=== PATIENT | female | born 1960 | race Caucasian/White ===

== ENCOUNTER 2017-08-06 17:35 | Emergency (ER) | payer BC ==
[2017-08-06 18:19] VITALS: BP 136/88
--- NOTE | 2017-08-06 18:38 | UC ---
Hand/Wrist HPI - HPI Summary HPI Summary: Pt reports that she was carrying 3 heavy grocery bags today and they twisted, pinching her right 4th dip joint, causing sudden onset of swelling, mild discomfort, and weakness at dip joint. pt is able to flex dip but not fully extend joint. - History Of Current Complaint Chief Complaint: UCGeneralIllness Stated Complaint: RIGHT HAND INJURY Time Seen by Provider: 08/06/17 18:15 Hx Obtained From: Patient Hx Last Menstrual Period: 11/2011 ?: No Mechanism Of Injury: twisting and pulling by heavy grocery bags. Onset/Duration: Gradual Onset, Lasting Hours, Still Present Severity Initially: Mild Severity Currently: Mild Character Of Pain: Dull, Aching, Throbbing Aggravating Factor(s): Movement, Extension - unable to extend Alleviating Factor(s): Rest Associated Signs And Symptoms: Positive: Swelling, Weakness Related History: Dominant Hand Right - Risk Factors Compartment Syndrome Risk Factors: Pain - Allergies/Home Medications Allergies/Adverse Reactions: Allergies Allergy/AdvReac Type Severity Reaction Status Date / Time No Known Allergies Allergy Verified 08/06/17 18:14 PMH/Surg Hx/FS Hx/Imm Hx Previously Healthy: Yes - Surgical History Surgical History: Yes Surgery Procedure, Year, and Place: hysterectomy - Family History Known Family History: Positive: Cardiac Disease - Social History Occupation: Employed Full-time Lives: With Family Alcohol Use: Occasionally Alcohol Amount: ~3 Substance Use Type: None Smoking Status (MU): Never Smoked Tobacco Have You Smoked in the Last Year: No - Immunization History Most Recent Influenza Vaccination: no Vaccination Up to Date: No Review of Systems Constitutional: Negative Skin: Bruising - distal right 4th dip joint Eyes: Negative ENT: Negative Respiratory: Negative Cardiovascular: Negative Gastrointestinal: Negative Genitourinary: Negative Motor: Decreased ROM - right dip joint Neurovascular: Negative Musculoskeletal: Decreased ROM - right 4th finger dip joint, unable to extend is able to flex, Edema - right 4t5h finger, Neurological: Weakness - right 4th finger dip joint Psychological: Negative Is Patient Immunocompromised?: No All Other Systems Reviewed And Are Negative: Yes Physical Exam Triage Information Reviewed: Yes Appearance: Well-Appearing Vital Signs: Initial Vital Signs Temp 97.4 F 08/06/17 18:15 Pulse 70 08/06/17 18:15 Resp 16 08/06/17 18:15 BP 136/88 08/06/17 18:15 Pulse Ox 97 08/06/17 18:15 Vital Signs Reviewed: Yes Eye Exam: Normal ENT Exam: Normal Respiratory Exam: Other Respiratory: Positive: No respiratory distress Musculoskeletal: Positive: Strength Limited @ - right 4th dip joint, ROM Limited @ - right dip joint, Edema @ - right 4th finger Neurological Exam: Normal Psychological Exam: Normal Skin Exam: Other - bruising, right 4th finger Hand/Wrist Course/Dx - Differential Dx/Diagnosis Differential Diagnosis/HQI/PQRI: Contusion, Fracture, Strain, Tenosynovitis Provider Diagnoses: right 4th finger strain. joint swelling. tendon rupture Discharge - Discharge Plan Condition: Stable Disposition: HOME Patient Education Materials: Finger Sprain (ED), Tendon Rupture (ED) Referrals: Louis Simental MD [Medical Doctor] - As Soon As Possible Dayana Sweet [Physician Admeasurer] - If Needed
--- NOTE | 2017-08-06 19:35 | RAD ---
INDICATION: Injury to the right ring finger. TECHNIQUE: 3 views of the right ring finger were obtained. FINDINGS: The bones are normal alignment. Joint spaces appear maintained. No fracture is seen. IMPRESSION: NO EVIDENCE FOR FRACTURE, IF THE PATIENT'S SYMPTOMS PERSIST RECOMMEND FOLLOW-UP IMAGING.
== END 2017-08-06 19:31 | disposition home or self-care (01) ==
LOC: UCCORT 17:35
DX: S66.514A Strain of intrinsic muscle, fascia and tendon of right ring finger at wrist and hand level, initial encounter (principal); X50.9XXA Other and unspecified overexertion or strenuous movements or postures, initial encounter; Y92.9 Unspecified place or not applicable
CPT/HCPCS: 73140; 99201; G0463

== ENCOUNTER 2017-09-04 09:14 | Emergency (ER) | payer BC ==
[2017-09-04 10:18] VITALS: BP 126/72
--- NOTE | 2017-09-04 10:28 | UC ---
Skin Complaint HPI - HPI Summary HPI Summary: pt c/o sudden onset of tenderness, redness and swelling to left ear at site of piercing at crux of helix. - History of Current Complaint Chief Complaint: UCSkin Time Seen by Provider: 09/04/17 10:17 Stated Complaint: SKIN COMPLAINT Hx Obtained From: Patient Hx Last Menstrual Period: 11/2011 ?: No Onset/Duration: Sudden Onset, Lasting Hours, Still Present Skin Exposure Onset/Duration: Hours Ago Timing: Constant Onset Severity: Mild Current Severity: Mild Location: Discrete, Ear (Left) Character: Swelling, Pain, Redness Aggravating Factor(s): Touch Alleviating Factor(s): Unknown Associated Signs & Symptoms: Positive: Tenderness - Allergy/Home Medications Allergies/Adverse Reactions: Allergies Allergy/AdvReac Type Severity Reaction Status Date / Time No Known Allergies Allergy Verified 08/06/17 18:14 Review of Systems Constitutional: Negative Skin: Other - erythema, swelling, tenderness Eyes: Negative ENT: Other - swelling and tenderness at site of piercing, yanet of helix Respiratory: Negative Cardiovascular: Negative Gastrointestinal: Negative Genitourinary: Negative Motor: Negative Neurovascular: Negative Musculoskeletal: Negative Neurological: Negative Psychological: Negative Is Patient Immunocompromised?: No All Other Systems Reviewed And Are Negative: Yes PMH/Surg Hx/FS Hx/Imm Hx Previously Healthy: Yes - Surgical History Surgical History: Yes Surgery Procedure, Year, and Place: hysterectomy - Family History Known Family History: Positive: Cardiac Disease - Social History Alcohol Use: Occasionally Alcohol Amount: ~3 Substance Use Type: None Smoking Status (MU): Never Smoked Tobacco Have You Smoked in the Last Year: No - Immunization History Most Recent Influenza Vaccination: no Vaccination Up to Date: No Physical Exam Triage Information Reviewed: Yes Vital Signs: Initial Vital Signs Temp 98.3 F 09/04/17 10:13 Pulse 74 09/04/17 10:13 Resp 18 09/04/17 10:13 BP 126/72 09/04/17 10:13 Pulse Ox 100 09/04/17 10:13 Vital Signs Reviewed: Yes Eye Exam: Normal ENT Exam: Other ENT: Positive: Other - yanet of helix left ear, is mild swelling, mild erythema, and tenderness. piercing intac.t I attempted to remove peircing but pt declined and stated she woud have the person who pierced it take it out. Dental Exam: Normal Neck exam: Normal Respiratory Exam: Normal Cardiovascular Exam: Normal Musculoskeletal Exam: Normal Neurological Exam: Normal Psychological Exam: Normal Skin Exam: Other - erythema, swelling, tenderness left yanet of helix at site of piercing. Course/Dx - Differential Diagnoses - Skin Complaint Differential Diagnoses: Abscess - left ear cellulitis, Cellulitis, MRSA - Diagnoses Provider Diagnoses: cellulitis left ear. skin infection Discharge - Discharge Plan Condition: Stable Disposition: HOME Prescriptions: Cephalexin CAP* [Keflex 500 CAP*] 500 mg PO Q12H #10 cap Patient Education Materials: Cellulitis (ED) Referrals: Monica Zayas MD [Primary Care Provider] - If Needed
== END 2017-09-04 10:36 | disposition home or self-care (01) ==
LOC: UCCORT 09:14
DX: H60.12 Cellulitis of left external ear (principal); Z90.710 Acquired absence of both cervix and uterus
CPT/HCPCS: 99212; G0463

== ENCOUNTER 2018-01-11 10:36 | Emergency (ER) | payer BC ==
--- OUTSIDE RECORDS SUMMARY | 2018-01-11 11:06 | XMS REPORT ---
:1960 External Reference #:[id number] Author Organization [facility] Address [address] [address] Phone [phone] Care Team Providers Name Role Phone Monica Zayas MD Care Team Information Action Finisher Unavailable Payers Type Date Identification Numbers Payment Provider Subscriber Commercial Policy Number: [id number] [facility] Commercial Sharon Worley PayID: [id number] [address] [address] [place] [address] Problems Date Description Provider Status Onset: 05/07/2012 Migraine without aura, not refractory Dayana Galindo PA Active Family History Date Family Member(s) Problem(s) Comments Father due to () age 57 Father CVA age 47- related to carotidendarectomy Father Alcoholism : (age Father due to Stroke post op carotid 57 Years) endarterectomy age 51, at 57 Father Hypertension Father CAD Mother Tobacco Abuse Emphysema Mother due to COPD () - age 79 Children 1 First Son No Current Problems Siblings 3 First Brother Hypertension : (1991) First Sister due to age 39 Aneurysm, Cerebral Second Sister Arthritis Paternal Uncles Cancer, Throat Social History Type Date Description Comments Education Highest Level Completed Master's Degree Marital Status 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[place], 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 , 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58 ETOH Use Occasionally consumes alcohol Smoking Patient has never smoked Recreational Drug Use Denies Drug Use Daily Caffeine Consumes on average 2 sodas per day Exercise Type/Frequency Exercises regularly walk, run; 11/22/16 counselled 150min per wek 41388 steps per day [facility] Allergies, Adverse Reactions, Alerts Date Description Reaction Status Severity Comments 12/03/2014 NKDA active Medications Medication Date Status Form Strength Qnty SIG Indications Ordering Provider Prednisone 01/02 Active Tablets 20mg 10tab 3 by mouth M54.5 Cunningha /2018 s for 3 days, Monica bower, then 1 by mouth daily for 4 days Naproxen 01/02 Active Tablets 500mg 60tab 1 by mouth M54.5 s twice a day Monica bower, with food, start when pred is done Sumatriptan 10/25 Active Solution 4mg/0.5ML 3ml inject one Auto-Inject dose at Monica bower, onset of MD migraines and then repeat after 2 hours if persistent. Sumatriptan 10/04 Active Tablets 100mg 9tabs take 1 tablet by Monica bower, mouth at the onset of headache ,may repeat one time after 2 hours as needed Valacyclovir HCL 08/02 Active Tablets 1gm 4tabs 2 by mouth Pramod every 12 Moinca bower, hours at onset of cold sore Vitamin D-3 12/17 Hx Capsules 1000Unit 30cap 1 by mouth E55.9 s every day Monica bower, - with dinner 07/07 with meat fat oil Amoxicillin/Clav 03/13 Hx Tablets 875-125mg 20tab 1 by mouth J01.90 Epstein, ulanate /2015 s twice a day Abelardo Potassium - DO 03/23 Amitriptyline 11/08 Hx Tablets 10mg take 3 Tabs G43.809 Epstein, HCL by mouth at Abelardo, - bedtime DO 03/13 Fluticasone 11/08 Hx Suspension 50mcg/Act 16uni 1 spray R51 Lucian, Propionate ts each Abelardo, - nostril DO 11/22 twice a day /2016 Amitriptyline 10/04 Hx Tablets 50mg 30tab 1 po qhs G43.809 Epstein, HCL s Abelardo, - DO 11/08 Amitriptyline 08/04 Hx Tablets 10mg 90tab 1 by mouth G43.809 Epstein, HCL /2014 s every night Abelardo, - at bedtime, DO 10/04 increase by 1 every 3-4 days for persistent allison Fluticasone 07/04 Hx Suspension 50mcg/Act 16uni 1 spray J01.80 Epstein, Propionate ts each Abelardo, - nostril DO 09/04 twice a day /2014 Topiramate 07/04 Hx Tablets 25mg 30tab 1 by mouth G43.809 Epstein, s every day Abelardo, - DO 08/04 Amoxicillin/Clav 12/03 Hx Tablets 875-125mg 20tab 1 by mouth 465.9 Digiovann ulanate s every 12 a, Potassium - hours for [place], 12/13 10 days [employer] Cyclobenzaprine 09/19 Hx Tablets 5mg 30tab 1-2 po qhs 724.2 Epstein, HCL s Abelardo, - DO 09/26 Famotidine 05/20 Hx Tablets 20mg 60tab 1 by mouth Epstein, s twice a day Abelardo, - DO 07/04 Naproxen 03/15 Hx Tablets 500mg 60tab 1 by mouth Epstein, /2013 s twice a day Abelardo, - with food x DO 07/04 2 weeks, then as needed Sumatriptan 02/20 Hx Solution 4mg/0.5ML 4unit inject 1 Epstein, Succinate Refill /2010 Cartridge s dose Abelardo, - subcutaneou DO 11/22 sly for migraines may repeat in 1 hour if migraines persists Premarin 00/00 Hx Solution 25mg 30tab 1 by mouth Unknown /0000 Rec s every day - 08/04 Pantoprazole 00/[address] 40mg 90tab 1 by mouth Epstein, Sodium /0000 s every day Abelardo, - DO 11/22 Amitriptyline 00/00 Hx Tablets 10mg take Two G43.809 Unknown HCL /0000 tablet by - mouth at 06/19 bedtime /2015 Propranolol HCL 00/00 Hx Caps ER 80mg 1 by mouth Unknown ER /0000 24HR every day - 06/19 Immunizations CPT Code Status Date Vaccine Reaction Lot # [id number] Given 11/22/2016 Tdap (Adacel) Ages 7 And Im inj completed, Pt [id number] Above Only tolerated well 09933 Refused 11/22/2016 Influenza Virus Vaccine,Quadrivalent,Split,Preserv Free 3 Yrs+ Vital Signs Date Vital Result Comment 01/02/2018 Weight 178.00 lb Heart Rate 72 /min BP Systolic 120 mmHg BP Diastolic 80 mmHg Respiratory Rate 18 /min Height 67.75 inches 5'7.75" BMI (Body Mass Index) 27.3 kg/m2 07/08/2017 Weight 169.00 lb Heart Rate 72 /min BP Systolic 118 mmHg BP Diastolic 82 mmHg Respiratory Rate 16 /min Height 67.75 inches 5'7.75" 11/22/16 BMI (Body Mass Index) 25.9 kg/m2 12/17/2016 Weight 172.00 lb Heart Rate 76 /min BP Systolic 126 mmHg BP Diastolic 84 mmHg Respiratory Rate 14 /min Height 67.75 inches 5'7.75" 11/22/16 BMI (Body Mass Index) 26.3 kg/m2 11/22/2016 Weight 174.00 lb Heart Rate 76 /min BP Systolic 128 mmHg BP Diastolic 76 mmHg Respiratory Rate 16 /min Height 67.75 inches 5'7.75" 11/22/16 BMI (Body Mass Index) 26.6 kg/m2 06/19/2016 Body Temperature 98.3 F Weight 172.00 lb Heart Rate 72 /min BP Systolic 138 mmHg BP Diastolic 70 mmHg Respiratory Rate 18 /min Height 68 inches 5'8" O2 % BldC Oximetry 97 % BMI (Body Mass Index) 26.1 kg/m2 03/13/2016 Body Temperature 98.0 F Weight 167.00 lb Heart Rate 94 /min BP Systolic 152 mmHg BP Diastolic 80 mmHg Respiratory Rate 18 /min Height 68 inches 5'8" O2 % BldC Oximetry 98 % BMI (Body Mass Index) 25.4 kg/m2 11/08/2015 Weight 165.00 lb Heart Rate 72 /min BP Systolic 132 mmHg BP Diastolic 80 mmHg Respiratory Rate 18 /min Height 68 inches 5'8" BMI (Body Mass Index) 25.1 kg/m2 09/04/2015 Weight 162.00 lb Heart Rate 86 /min BP Systolic 134 mmHg BP Diastolic 90 mmHg Respiratory Rate 17 /min Height 68 inches 5'8" BMI (Body Mass Index) 24.6 kg/m2 08/04/2015 Weight 160.00 lb Heart Rate 68 /min BP Systolic 120 mmHg BP Diastolic 70 mmHg Respiratory Rate 18 /min Height 68 inches 5'8" BMI (Body Mass Index) 24.3 kg/m2 07/04/2015 Body Temperature 98.2 F Weight 161.00 lb Heart Rate 68 /min BP Systolic 134 mmHg BP Diastolic 70 mmHg Respiratory Rate 18 /min Height 68 inches 5'8" BMI (Body Mass Index) 24.5 kg/m2 12/03/2014 Body Temperature 97.5 F Weight 165.00 lb Heart Rate 68 /min BP Systolic 112 mmHg BP Diastolic 70 mmHg Respiratory Rate 18 /min Height 67.75 inches 5'7.75" O2 Saturation Level with Exercise 97 % BMI (Body Mass Index) 25.3 kg/m2 09/19/2014 Weight 178.00 lb Heart Rate 74 /min BP Systolic 140 mmHg BP Diastolic 80 mmHg Respiratory Rate 18 /min Height 67.75 inches 5'7.75" BMI (Body Mass Index) 27.3 kg/m2 06/02/2014 Body Temperature 98.3 F Weight 174.00 lb Heart Rate 74 /min BP Systolic 110 mmHg BP Diastolic 70 mmHg Respiratory Rate 18 /min Height 67.75 inches 5'7.75" 05/20/2014 Body Temperature 98.3 F Weight 172.00 lb Heart Rate 68 /min BP Systolic 130 mmHg BP Diastolic 72 mmHg Respiratory Rate 18 /min Height 67.25 inches 5'7.25" 04/14/2014 Weight 174.00 lb Heart Rate 64 /min BP Systolic 100 mmHg BP Diastolic 64 mmHg Respiratory Rate 18 /min Height 67.25 inches 5'7.25" 03/15/2014 Weight 174.00 lb Heart Rate 72 /min BP Systolic 124 mmHg BP Diastolic 84 mmHg Respiratory Rate 18 /min Height 67.25 inches 5'7.25" 12/10/2013 Body Temperature 97.9 F Weight 175.00 lb Heart Rate 80 /min BP Systolic 124 mmHg BP Diastolic 88 mmHg Respiratory Rate 16 /min 12/03/2013 Weight 178.00 lb Heart Rate 72 /min BP Systolic 128 mmHg BP Diastolic 80 mmHg Respiratory Rate 18 /min 11/19/2013 Weight 175.00 lb Heart Rate 70 /min BP Systolic 132 mmHg BP Diastolic 74 mmHg Respiratory Rate 18 /min 11/16/2013 Body Temperature 98.2 F Weight 178.00 lb Heart Rate 84 /min BP Systolic 136 mmHg BP Diastolic 86 mmHg Respiratory Rate 16 /min 04/07/2013 Weight 173.00 lb Heart Rate 88 /min BP Systolic 114 mmHg BP Diastolic 72 mmHg Respiratory Rate 16 /min Height 67.25 inches 5'7.25" 10/08/2012 Weight 160.00 lb Heart Rate 60 /min BP Systolic 124 mmHg BP Diastolic 72 mmHg Respiratory Rate 18 /min 07/08/2012 BP Systolic 120 mmHg BP Diastolic 82 mmHg 07/08/2012 Weight 173.00 lb Heart Rate 74 /min BP Systolic 124 mmHg BP Diastolic 80 mmHg Respiratory Rate 18 /min 05/07/2012 BP Systolic 142 mmHg BP Diastolic 86 mmHg 05/07/2012 Body Temperature 98.4 F Weight 169.00 lb Heart Rate 74 /min BP Systolic 164 mmHg BP Diastolic 90 mmHg Respiratory Rate 18 /min Height 67.75 inches 5'7.75" 06/10/2011 Body Temperature 98.8 F Weight 172.00 lb Heart Rate 76 /min BP Systolic 94 mmHg BP Diastolic 78 mmHg Respiratory Rate 18 /min Height 67.75 inches 5'7.75" 02/20/2011 Weight 172.00 lb Heart Rate 92 /min BP Systolic 104 mmHg l arm BP Diastolic 78 mmHg l arm Respiratory Rate 16 /min Height 67.75 inches 5'7.75" 10/03/2010 Body Temperature 98.2 F Weight 174.00 lb Heart Rate 80 /min BP Systolic 132 mmHg LEFT BP Diastolic 88 mmHg LEFT Respiratory Rate 16 /min 05/30/2010 Weight 170.00 lb Heart Rate 72 /min BP Systolic 110 mmHg l arm BP Diastolic 76 mmHg l arm Respiratory Rate 18 /min 12/14/2009 Body Temperature 98.4 F Weight 166.00 lb Heart Rate 70 /min BP Systolic 112 mmHg BP Diastolic 80 mmHg Respiratory Rate 18 /min 11/22/2009 Body Temperature 98.3 F Weight 169.00 lb Heart Rate 68 /min BP Systolic 112 mmHg LEFT BP Diastolic 68 mmHg LEFT Respiratory Rate 16 /min 11/02/2009 Body Temperature 97.0 F Weight 169.00 lb Heart Rate 62 /min BP Systolic 116 mmHg RIGHT BP Diastolic 72 mmHg RIGHT Respiratory Rate 16 /min O2 % BldC Oximetry 98 % rm air 08/17/2009 Weight 174.00 lb Heart Rate 72 /min BP Systolic 120 mmHg BP Diastolic 80 mmHg Respiratory Rate 13 /min 08/09/2009 Body Temperature 97.9 F Weight 174.00 lb Heart Rate 78 /min BP Systolic 122 mmHg BP Diastolic 84 mmHg 07/21/2009 Body Temperature 98.0 F Weight 174.00 lb Heart Rate 70 /min BP Systolic 126 mmHg BP Diastolic 84 mmHg Respiratory Rate 16 /min 06/29/2009 Weight 176.00 lb Heart Rate 77 /min BP Systolic 140 mmHg BP Diastolic 90 mmHg Respiratory Rate 14 /min 11/10/2008 Weight 178.00 lb Heart Rate 76 /min BP Systolic 118 mmHg BP Diastolic 80 mmHg Respiratory Rate 14 /min 06/23/2008 Weight 178.00 lb Heart Rate 72 /min BP Systolic 118 mmHg BP Diastolic 82 mmHg Respiratory Rate 18 /min Height 68 inches 5'8" 04/25/2008 Heart Rate 66 /min BP Systolic 112 mmHg BP Diastolic 74 mmHg Respiratory Rate 14 /min Height 68 inches 5'8" 02/23/2008 Weight 166.00 lb Heart Rate 66 /min BP Systolic 110 mmHg BP Diastolic 70 mmHg Respiratory Rate 16 /min Height 68 inches 5'8" 01/25/2008 Weight 171.00 lb Heart Rate 68 /min BP Systolic 128 mmHg BP Diastolic 86 mmHg Respiratory Rate 17 /min Height 68 inches 5'8" 08/28/2007 Body Temperature 98.5 F Heart Rate 68 /min BP Systolic 90 mmHg BP Diastolic 76 mmHg Respiratory Rate 19 /min Height 68 inches 5'8" 07/01/2007 Heart Rate 72 /min BP Systolic 130 mmHg BP Diastolic 80 mmHg Respiratory Rate 18 /min Height 68 inches 5'8" 06/10/2007 Body Temperature 98.9 F Weight 163.00 lb Heart Rate 72 /min BP Systolic 106 mmHg BP Diastolic 80 mmHg Respiratory Rate 18 /min Height 68 inches 5'8" 04/08/2007 Weight 160.00 lb Heart Rate 68 /min BP Systolic 110 mmHg BP Diastolic 80 mmHg Height 68 inches 5'8" 01/22/2007 Weight 163.00 lb Heart Rate 68 /min BP Systolic 120 mmHg BP Diastolic 80 mmHg Respiratory Rate 16 /min Height 68 inches 5'8" 01/05/2007 Weight 165.00 lb Heart Rate 69 /min BP Systolic 110 mmHg BP Diastolic 80 mmHg Respiratory Rate 18 /min Height 68 inches 5'8" 12/03/2006 Weight 164.00 lb Heart Rate 72 /min BP Systolic 100 mmHg BP Diastolic 64 mmHg Respiratory Rate 16 /min Height 68 inches 5'8" 11/19/2006 Weight 166.00 lb Heart Rate 75 /min BP Systolic 114 mmHg BP Diastolic 80 mmHg Respiratory Rate 17 /min Height 68 inches 5'8" 08/12/2006 Body Temperature 98.6 F Weight 161.00 lb Heart Rate 69 /min BP Systolic 106 mmHg BP Diastolic 60 mmHg Respiratory Rate 18 /min Height 68 inches 5'8" 06/20/2006 Weight 156.00 lb Heart Rate 94 /min BP Systolic 96 mmHg BP Diastolic 72 mmHg Respiratory Rate 17 /min Height 68 inches 5'8" 11/06/2005 Weight 159.00 lb With Coat And Boots Heart Rate 69 /min BP Systolic 108 mmHg BP Diastolic 74 mmHg Respiratory Rate 15 /min 05/06/2005 Weight 156.00 lb Heart Rate 71 /min BP Systolic 92 mmHg BP Diastolic 68 mmHg Respiratory Rate 18 /min 04/24/2005 Weight 156.00 lb Heart Rate 76 /min BP Systolic 120 mmHg BP Diastolic 90 mmHg Respiratory Rate 18 /min Results Test Date Test Result H/L Range Note Laboratory test finding 07/01/2017 Vit D25oh 24 ng/mL Low 31-100 Lipid 07/01/2017 Cholesterol 279 mg/dL High 50-199 Triglycerides 85 mg/dL 30-200 HDL 86 mg/dL High 35-85 1 Chol/ HDL Ratio 3.2 ratio Low 3.7-5.6 VLDL 17 mg/dL 2-29 LDL (Calc) 176 mg/dL High 20-99 2 Comprehensive Met Panel-[facility]G 07/01/2017 Sodium 141 mmol/L 135-146 3 Potassium 4.4 mmol/L 3.5-5.2 Chloride# 105 mmol/L 97-110 4 Carbon Dioxide 27 mmol/L 24-34 Glucose 100 mg/dL 70-105 Creatinine 0.9 mg/dL 0.5-1.4 Calcium 10.0 mg/dL 8.5-10.2 Total Protein 6.7 g/dL 6.0-8.0 Albumin 4.4 g/dL 3.6-4.9 Globulin 2.3 g/dL 2.0-3.5 A/G Ratio 1.9 Ratio 1.0-2.2 Total Bilirubin 0.6 mg/dL 0.1-1.3 Alkaline Phosphatase 62 U/L 24-140 Alt 14 U/L 3-42 Ast 16 U/L 8-42 Mary Kay Egfr >60 >60 5 Non Mary Kay Egfr >60 >60 6 Anion Gap 9 mmol/L 7-16 7 BUN 16 mg/dL 6-26 Lipid 12/06/2016 Cholesterol 267 mg/dL High 50-199 8 Triglycerides 78 mg/dL 30-200 8 HDL 80 mg/dL 35-85 8, 9 Chol/ HDL Ratio 3.3 ratio Low 3.7-5.6 8 VLDL 16 mg/dL 2-29 8 LDL (Calc) 172 mg/dL High 20-99 8, 10 Comprehensive Metabolic (CMP) 12/06/2016 Sodium 142 mmol/L 135-146 8, 11 Potassium 4.5 mmol/L 3.5-5.2 8 Chloride# 105 mmol/L 97-110 8, 12 Carbon Dioxide 30 mmol/L 24-34 8 Glucose 93 mg/dL 70-105 8 BUN 19 mg/dL 6-26 8 Creatinine 0.9 mg/dL 0.5-1.4 8 Calcium 9.9 mg/dL 8.5-10.2 8 Total Protein 6.8 g/dL 6.0-8.0 8 Albumin 4.6 g/dL 3.6-4.9 8 Globulin 2.2 g/dL 2.0-3.5 8 A/G Ratio 2.1 Ratio 1.0-2.2 8 Total Bilirubin 0.7 mg/dL 0.1-1.3 8 Alkaline Phosphatase 72 U/L 24-140 8 Alt 13 U/L 3-42 8 Ast 15 U/L 8-42 8 Mary Kay Egfr >60 >60 8, 13 Non Mary Kay Egfr >60 >60 8, 14 Anion Gap 12 mmol/L 7-16 8, 15 Laboratory test finding 12/06/2016 TSH 1.40 uIU/mL 0.35-4.94 8 Vit D,25 Hydroxy 28 ng/mL Low 31-100 8 Hepatitis C Virus Antibody NONREACTIVE Nonreactive 8 Laboratory test 11/22/2016 Pap Smear Thin ok 16 finding Prep Laboratory test 11/22/2016 HPV Laboratory Allia 17 finding <SEE NOTE> Basic Metabolic Panel 09/17/2014 Glucose 116 mg/dL High 74-106 BUN 16 mg/dL 7-18 Creatinine 1.1 mg/dL 0.6-1.3 Glom Filtration Rate, Estimate 55 mL/min >60 If >60 mL/min >60 18 BUN/Creat 14.5 ratio Sodium 142 mmol/L 136-145 Potassium 3.8 mmol/L 3.5-5.1 Chloride 107 mmol/L 98-107 Carbon Dioxide 24 mmol/L 21-32 Anion Gap 15 mEq/L 8-16 Calcium 8.8 mg/dL 8.5-10.1 Laboratory test finding 09/17/2014 CK 110 U/L 26-192 Troponin-I < 0.02 ng/mL 19 CBC W/Automated Diff 09/17/2014 White Blood Count 5.3 K/uL 3.1-10.7 Red Blood Count 4.14 M/uL 3.90-5.40 Hemoglobin 13.7 gm/dL 11.6-15.8 Hematocrit 39.4 % 36.0-46.1 Mean Cell Volume 95.2 fl 80.9-99.0 Mean Corpuscular HGB 33.1 pg High 25.9-32.7 Mean Corpuscular HGB Conc 34.8 g/dL High 30.8-34.3 Platelet Count 203 K/uL 155-360 Red Cell Distri Width SD 43.1 fl 3-47 Red Cell Distri Width %CV 12.6 % 11.7-14.4 Mean Platelet Volume 10.0 fL 8.9-12.4 Neut% 50.7 % 40.4-72.8 Lymph % 37.5 % 17.0-46.1 Bryan % 7.6 % 4.3-13.2 Eo% 3.2 % 0.0-6.6 Bas% 1.0 % 0.0-1.1 Neut# 2.67 K/uL 1.0-7.0 Lymph # 1.97 K/uL 0.8-3.4 Bryan # 0.40 K/uL 0.3-0.9 Eos # 0.17 K/uL 0.0-0.5 Baso # 0.05 K/uL 0.0-0.1 Laboratory test finding 04/14/2014 % Baso. 1.7 % 0.0-2.0 % Eos. 2.7 % 0.0-4.0 % Lymph 35 % 20-44 % Bryan 9.6 % 2.0-10.0 % Josie 51 % 50-70 Absolute Baso. 0.1 K/ul 0.0-0.3 Absolute Eos. 0.1 K/ul 0.0-0.5 Absolute Lymph. 1.7 K/ul 0.8-4.8 Absolute Bryan. 0.5 K/ul 0.1-1.0 Absolute Josie. 2.58 K/ul 2.05-7.63 BUN 16.0 mg/dL 7.0-18.0 BUN/Creat Ratio 17.8 ratio 12.0-20.0 Calcium 9.7 mg/dL 8.7-10.5 Chloride 106.0 mmol/L 98.0-107.0 Co2 26.0 mmol/L 22.0-30.0 Creatinine-Serum 0.9 mg/dL 0.7-1.2 Glucose 99.0 mg/dL 75.0-110.0 HCT 41.6 % 37.0-51.0 HGB 14.6 Gm/dl 12.0-16.0 MCH 32.7 pg High 26.0-32.0 MCHC 35.0 g/dL 31.0-36.0 MCV 93.4 Fl 80.0-97.0 MPV 6.4 fL 6.0-10.0 PLT 214 K/ul 140-440 Potasium 4.4 mmol/L 3.6-5.0 RBC 4.5 M/ul 4.2-6.3 RDW 11.2 % Low 11.5-14.5 Sodium 142.0 mmil/L 137.0-145.0 Vitamin D 29.7 ng/mL Low 30.0-100.0 WBC 5.0 K/ul 4.1-10.9 eGFR 69.9 Lipid Panel 04/14/2014 Chol/HDL Ratio 3.1 ratio Cholesterol 261.0 mg/dL High 50.0-199.0 HDL 84.0 mg/dL 29.0-86.0 LDL, Calculated 150.4 mg/dL High 20.0-129.0 Triglycerides 133.0 mg/dL 30.0-249.0 vLDL 26.6 ng/dL Laboratory test finding 05/07/2012 Anion Gap 17 mmol/L 10-20 BUN 15 mg/dL 7-18 BUN/CR Ratio 17.7 Ratio 12-20 Calcium 9.8 mg/dL 8.7-10.5 Carbon Dioxide 26 mmol/L 22-30 Chloride 100 mmol/L 98-107 Creatinine, Serum 0.8 mg/dL 0.7-1.2 Glucose 93 mg/dL 65-105 Potassium 5.1 mmol/L High 3.6-5.0 Sodium 137 mmol/L 137-145 Lipid Panel 05/07/2012 Chol/HDL Ratio 2.7 20 Cholesterol 254 mg/dL High 50-199 HDL Cholesterol 94 mg/dL High 29-86 LDL 144 mg/dL High 20-129 Triglycerides 81 mg/dL 30-249 VLDL Cholesterol 16 mg/dL Laboratory test finding 11/20/2011 Hematocrit 34.8 % Low 36.0-46.1 Hemoglobin 11.8 gm/dL 11.6-15.8 Mean Cell Volume 97.5 fl 80.9-99.0 Mean Corpuscular HGB 33.1 pg High 25.9-32.7 Mean Corpuscular HGB Conc 33.9 g/dL 30.8-34.3 Mean Platelet Volume 10.6 fL 8.9-12.4 Platelet Count 157 K/uL 155-360 Red Blood Count 3.57 M/uL Low 3.90-5.40 Red Cell Distri Width %CV 12.4 % 11.7-14.4 White Blood Count 5.0 K/uL 3.1-10.7 Laboratory test finding 11/19/2011 Hematocrit 35.1 % Low 36.0-46.1 Hemoglobin 11.8 gm/dL 11.6-15.8 Mean Cell Volume 98.0 fl 80.9-99.0 Mean Corpuscular HGB 33.0 pg High 25.9-32.7 Mean Corpuscular HGB Conc 33.6 g/dL 30.8-34.3 Mean Platelet Volume 10.6 fL 8.9-12.4 Platelet Count 148 K/uL Low 155-360 Red Blood Count 3.58 M/uL Low 3.90-5.40 Red Cell Distri Width %CV 12.7 % 11.7-14.4 White Blood Count 5.1 K/uL 3.1-10.7 Laboratory test finding 11/18/2011 Uterus W/Wo FT/Ovary-Fibroid See Note 21 Laboratory test finding 12/14/2009 Lidia Species See Note 22 Gardnerella Vaginalis See Note 23 Trichomonas Vaginalis See Note 24 Laboratory test finding 11/22/2009 Culture Urine See Note 25 Laboratory test finding 08/17/2009 Absolute Basophils 0.061 K/ul 0.0-0.3 Absolute Eosinophils 0.070 K/ul 0.0-0.5 Absolute Lymphocytes 1.20 K/ul 0.8-4.8 Absolute Monocytes 0.309 K/ul 0.1-1.0 Absolute Neutrophils 2.70 K/ul 2.05-7.63 Anion Gap 14 mmol/L 10-20 BUN 16 mg/dL 7-18 BUN/CR Ratio 17.5 Ratio 12-20 Basophil 1.4 % 0-2 Calcium 9.9 mg/dL 8.7-10.5 Carbon Dioxide 27 mmol/L 22-30 Chloride 104 mmol/L 98-107 Creatinine, Serum 0.9 mg/dL 0.7-1.2 Eosinophil 1.6 % 0-4 FSH 5.3 mIU/mL 26 Glucose 90 mg/dL 65-105 Hematocrit 44.4 % 37.0-51.0 Hemoglobin 14.8 GM/dl 12.0-16.0 Luteinizing Hormone 3.1 mIU/mL 27 Lymphocytes 27.7 % 20-44 MCH 33.0 pg High 26.0-32.0 MCHC 33.2 g/dL 31.0-36.0 MCV 99 FL High 80-97 Monocytes 7.1 % 2-10.0 Neutrophils 62.2 % 50-70 Platelet Count 237 K/ul 140-440 Potassium 5.2 mmol/L High 3.6-5.0 RBC 4.47 M/ul 4.2-6.3 RDW 11.8 % 11.5-14.5 Sodium 140 mmol/L 137-145 TSH 0.896 uIU/ml 0.50-6.00 WBC 4.3 K/ul 4.1-10.9 Laboratory test finding 06/29/2009 Cytology Pap See Note 28 Laboratory test finding 06/23/2008 Cytology Pap See Note 29 Laboratory test finding 01/22/2008 CK 33 U/L 26-190 30 Troponin-I 0.0 ng/mL 0.0-0.6 30, 31 Fio2 21 21-100 30 Heart Rate 65 BPM 30 Oximetry 95 % 93-98 30 Patient Position Lying Flat In Be <See Note> 30, 32 Patient Status Resting 30 Respiratory Rate 20 30 Act Partial Thrombo Time 25.1 s 22.0-36.0 30 CK 24 U/L Low 26-190 30 Hematocrit 38.2 % 36.0-46.1 30 Hemoglobin 13.0 gm/dL 11.6-15.8 30 Magnesium 1.9 mg/dL 1.7-2.3 30 Mean Cell Volume 95.5 fl 80.9-99.0 30 Mean Corpuscular HGB 32.5 pg 25.9-32.7 30 Mean Corpuscular HGB Conc 34.0 g/dL 30.8-34.3 30 Mean Platelet Volume 10.1 fL 8.9-12.4 30 Platelet Count 178 K/uL 155-360 30 Red Blood Count 4.00 M/uL 3.90-5.40 30 Red Cell Distri Width %CV 12.6 % 11.7-14.4 30 Troponin-I 0.0 ng/mL 0.0-0.6 30, 33 White Blood Count 6.1 K/uL 3.1-10.7 30 LDL Cholesterol Profile 01/22/2008 Cholesterol 192 mg/dL 120-200 30 HDL Cholesterol 65 mg/dL 32-96 30 LDL-Cholesterol 116 mg/dL 62-185 30 Triglycerides 55 mg/dL 0-210 30 Liver Function Tests 01/22/2008 Albumin 3.5 g/dL 3.5-5.0 30 Alkaline Phosphatase 51 U/L 50-136 30 Bilirubin,Direct 0.1 mg/dL 0.1-0.4 30 Bilirubin,Indirect 0.2 mg/dL 0.0-0.9 30 Bilirubin,Total 0.3 mg/dL 0.2-1.2 30 SGPT/Alt 29 U/L Low 30-65 30 Sgot/Ast 7 U/L Low 16-40 30 Total Protein 6.1 g/dL Low 6.3-8.0 30 Protime 01/22/2008 Inr 1.0 0.9-1.1 30, 34 Protime 12.8 s 12.1-14.6 30 Laboratory test finding 01/21/2008 Anion Gap 16 mEq/L 8-16 BUN 14 mg/dL 5-23 BUN/Creat 14.0 Bas% 0.5 % 0.0-1.1 Baso # 0.0 K/uL 0.0-0.1 CK 35 U/L 26-190 Calcium 9.1 mg/dL 8.5-10.1 Carbon Dioxide 20 mEq/L Low 21-32 Chloride 108 mEq/L High 98-107 Creatinine 1.0 mg/dL 0.5-1.4 D-Dimer, Quantitative < 0.22 ug/mL 35 Eo% 1.5 % 0.0-6.6 Eos # 0.1 K/uL 0.0-0.5 Glom Filtration Rate, Estimate >60 mL/min >60 Glucose 103 mg/dL 76-115 HCG Serum, Qualitative Negative Hematocrit 38.7 % 36.0-46.1 Hemoglobin 13.3 gm/dL 11.6-15.8 If >60 mL/min >60 36 Lymph # 1.7 K/uL 0.8-3.4 Lymph % 29.1 % 17.0-46.1 Mean Cell Volume 93.5 fl 80.9-99.0 Mean Corpuscular HGB 32.1 pg 25.9-32.7 Mean Corpuscular HGB Conc 34.4 g/dL High 30.8-34.3 Mean Platelet Volume 10.7 fL 8.9-12.4 Bryan # 0.5 K/uL 0.3-0.9 Bryan % 8.1 % 4.3-13.2 Neut# 3.6 K/uL 1.0-7.0 Neut% 60.8 % 40.4-72.8 Platelet Count 203 K/uL 155-360 Potassium 3.7 mEq/L 3.5-5.1 Red Blood Count 4.14 M/uL 3.90-5.40 Red Cell Distri Width %CV 12.5 % 11.7-14.4 Red Cell Distri Width SD 42 fl 3-47 Sodium 140 mEq/L 136-145 Troponin-I 0.0 ng/mL 0.0-0.6 37 White Blood Count 6.0 K/uL 3.1-10.7 Laboratory test finding 06/20/2006 Lidia Species Negative For Can <See 38 Note> Cytology Pap See Note 39 Gardnerella Vaginalis <see comment> 40 Trichomonas Vaginalis Negative For Tri <See Note> 41 Laboratory test finding 05/06/2005 FSH 5.1 mIU/mL 42 Luteinizing Hormone 7.8 mIU/mL 43 1 Per NCEP ATP III Guidelines: Results lower than 40 mg/dL are suggestive of increased risk for coronary artery disease. Results > or=to 60 mg/dL are considered a negative risk factor. 2 Per NCEP ATP III Guidelines: Normal Population <130 Patients with medical conditions: CHD/DM Optimal: <100 Borderline high: 130-159 High: 160-189 Very high: >189 3 Updated reference range on new analyzer 4 Updated reference range on new analyzer 5 Concerning GFR Guidelines for Americans: Normal function or mild renal disease, if clinically at risk: >/=60 mL/min Moderately decreased: 30-59 Severely decreased: 15-29 Renal failure: <15 6 Concerning GFR Guidelines: Normal function or mild renal disease, if clinically at risk: >/=60 mL/min Moderately decreased: 30-59 Severely decreased: 15-29 Renal failure: <15 Glomerular Filtration Rate (GFR) is estimated based on the MDRD equation, which assumes a steady state for creatinine as recommended by the National Kidney Disease Education Program in conjunction with the National Institutes of Health and the National Kidney Foundation. Clinical conditions in which it may be necessary to measure GFR by using clearance methods include extremes of age and body size, severe malnutrition or obesity, diseases of skeletal muscle, paraplegia or quadriplegia, vegetarian diet, rapidly changing kidney function, and calculation of the dose of potentially toxic drugs that are excreted by the kidneys. 7 Updated reference range on new analyzer 8 letter //bp 128, has fam history 9 Per NCEP ATP III Guidelines: Results lower than 40 mg/dL are suggestive of increased risk for coronary artery disease. Results > or=to 60 mg/dL are considered a negative risk factor. 10 Per NCEP ATP III Guidelines: Normal Population <130 Patients with medical conditions: CHD/DM Optimal: <100 Borderline high: 130-159 High: 160-189 Very high: >189 11 Updated reference range on new analyzer 12 Updated reference range on new analyzer 13 Concerning GFR Guidelines for Americans: Normal function or mild renal disease, if clinically at risk: >/=60 mL/min Moderately decreased: 30-59 Severely decreased: 15-29 Renal failure: <15 14 Concerning GFR Guidelines: Normal function or mild renal disease, if clinically at risk: >/=60 mL/min Moderately decreased: 30-59 Severely decreased: 15-29 Renal failure: <15 Glomerular Filtration Rate (GFR) is estimated based on the MDRD equation, which assumes a steady state for creatinine as recommended by the National Kidney Disease Education Program in conjunction with the National Institutes of Health and the National Kidney Foundation. Clinical conditions in which it may be necessary to measure GFR by using clearance methods include extremes of age and body size, severe malnutrition or obesity, diseases of skeletal muscle, paraplegia or quadriplegia, vegetarian diet, rapidly changing kidney function, and calculation of the dose of potentially toxic drugs that are excreted by the kidneys. 15 Updated reference range on new analyzer 16 [employer] [facility]. [address] [place] [id number] CYTOLOGY REPORT Source of Specimen(s): Thin Prep Cervical / Endocervical Pap Smear - One Vial Date of Last Menstrual Period: yrs ago Menstrual History: Post-menopausal Treatment History: Hysterectomy Other Clinical Conditions: Last Pap Smear: several yrs ago normal per pt HPV ASSAY REQUESTED Specimen Adequacy SATISFACTORY FOR EVALUATION General Categorization NEGATIVE FOR INTRAEPITHELIAL LESION OR MALIGNANCY Interpretation NEGATIVE FOR INTRAEPITHELIAL LESION OR MALIGNANCY Recommendations HPV testing will be performed and a separate report will be issued. Reported: 11/26/2016 07:32 Electronically Signed Out By Samantha DANIELS(ASCP) [facility] ICD9 Code: Z01.419 Unless otherwise specified, testing performed by [facility] [address] [address] [address] [facility] [address] [address] Amplified Molecular High Risk HPV Test Patient Name:SHARON WORLEY Patient :1960 Ordering Physician:MONICA ZAYAS MD Accession Number [id number] Specimen(s) Received A: High Risk HPV Thin Prep Cervical / Endocervical Pap Smear - One Vial Other Case Numbers: [id number] Diagnosis RISK GROUPS RESULTS High Risk NEGATIVE Tested for HPV Types (16, 18, 31, 33, 35, 39, 45, 51, 52, 56, 58, 59, 66, 68) Reported: 11/27/2016 09:30 Electronically Signed Out By Melina Bell [email or web address] Maria Guadalupe pol 18 Note: Persistent reduction for 3 months or more in an eGFR <60 mL/min/1.73 m2 defines CKD. Patients with eGFR values >/=60 mL/min/1.73 m2 may also have CKD if evidence of persistent proteinuria is present. The original MDRD equation for estimated GFR is not valid for patients less than 18 years of age. Additional information may be found at www.kdoqi.org. 19 0.0 - 0.045 ng/mL: Normal 0.046 - 0.5 ng/mL: Suggestive 0.6 - 1.5 ng/mL: Consistent 20 Normal Range: Male: <4.98 Female: <4.45 21 OPERATION/PROCEDURE Laparotomy, supra clavicular hysterectomy, bilateral salpingo-oophorectomy. DIAGNOSIS: "UTERUS, OVARIES AND FALLOPIAN TUBES": MYOMETRIUM: LEIOMYOMATA. ENDOMETRIUM: PRESSURE ATROPHY. FALLOPIAN TUBES: ESSENTIALLY NORMAL, MILD ATROPHY. OVARIES: HEMORRHAGIC CORPUS LUTEAL CYSTS, BENIGN AGE RELATED CHANGES. CYST OF MORGAGNI, PARATUBAL CYSTS. SEROSA: ESSENTIALLY NORMAL. WYS/clf GROSS Received in formalin labeled, "UTERUS, OVARIES AND FALLOPIAN TUBES" is a uterus with attached bilateral adnexa without cervix weighing 1068 grams in toto. The asymmetrical uterus measures 13.5 cm. from fundus to the lower surgical margin, 10.5 cm. from cornu to cornu and 10.5 cm. in A/P diameter. It is oriented by the relationship of the ovaries and fallopian tubes. A 4.5 x 4.5 x 4.2 cm. firm nodule is seen in the mid portion of the posterior wall. The serosal surface is otherwise unremarkable. The uterus is opened along lateral borders. Upon opening the fundus of the uterus is occupied by a large circumscribed firm nodule measuring 12.1 cm. in greatest dimension that appears to suppress the uterine cavity. On cut surfaces it has a bulging trabecular pattern without evidence of necrosis nor hemorrhage. The remaining uterine cavity measures up to 4.5 cm. The endometrium is less than 1 mm in thickness. The previously mentioned posterior nodule has a similar cut surface with the largest nodule with the exception of focal hemorrhagic changes. A third nodule measuring up to 1.4 cm. is seen on the posterior wall on the left side. It has a similar cut surface to the larger nodules. The non-neoplastic myometrium is otherwise unremarkable, and measures up to 4.5 cm in thickness. The right fallopian tube measures 4.5 cm. in length and up to 0.8 cm. in diameter. There is a 0.7 cm. thin walled cyst with clear fluid attached to the distal portion of the right fallopian tube. On gross surface it is unremarkable. The right ovary GROSS (Continued) measures 3.1 x 2.2 x 1.4 cm. It has a smooth surface. On cut surface there is a 1.5 x 1.1 x 0.7 cm. hemorrhagic cyst. The left fallopian tube appears to only be the proximal portion measuring 4.2 cm. in length and up to 0.4 cm. in diameter. Two large thin walled cysts measuring up to 2.5 cm. in greatest dimension is seen in the broad ligament and contains clear fluid. The left ovary measures 2.7 x 1.8 x 0.4 cm., it has a smooth surface. On cut surface it has two hemorrhagic cysts with joiner rims measuring up to 0.5 cm. in greatest dimension. It Director sections are submitted as follows: B1=anterior endomyometrium and lower uterine segment, B2=posterior endomyometrium, B3=small left posterior wall nodule, B4+B5=second largest posterior wall nodule, B6-B8=large fundal nodule , R1,R2/L1,L2=right/left adnexa. JW/clf MICROSCOPIC The endometrium is not observed, probably due to long-term pressure atrophy induced by the leiomyomata. There are nodular, well-demarcated islands of whorled bundles of fusiform smooth muscle cells with oval nuclei, in sections taken from the leiomyomata. Mitotic figures, giant cells and anaplasia are absent. The left ovary has a hemorrhage into a thinly lined luteal cyst. The right paratubal cyst has a nonstratified cubocolumnar lining. The fallopian tubes are normal in appearance, although slightly atrophic on left. Sections reveal cysts lined by flat to cuboidal cells lining the paratubal cyst. PRE OPERATIVE DIAGNOSIS Menorrhagia, fibroid uterus. REVIEW CODE CODE: I ----- DEYVI Jaeger MD 11/20/11 1230 ----- 22 NEGATIVE FOR LIDIA SPECIES Testing Performed by: [place] [address] 23 NEGATIVE FOR GARDNERELLA VAGINALIS 24 NEGATIVE FOR TRICHOMONAS VAGINALIS 25 COLONY COUNT ! 10,000 - 20,000 CFU/ml Organism 1 ! MIXED URETHRAL DONNA 26 NORMALLY MENSTRUATING FEMALES: Follicular Phase:...............4-13 mIU/mL Mid-Cycle Peak:.................5-22 mIU/mL Luteal Phase:...................2 -13 mIU/mL Postmenopausal Female:........20-138 mIU/mL 27 NORMALLY MENSTRUATING FEMALES: Follicular Phase.............1-18 mIU/mL Mid -Cycle Peak.............24-105 mIU/mL Luteal Phase...............0.4-20 mIU/mL Postmenopausal .............15-62 mIU/mL 28 Cytology [id number] [facility], [address] [place] [address] CYTOLOGY REPORT Name: SHARON WORLEY Accession # : [id number] : 1960 (Age: 48) Sex: F Location: [facility] Soc. Sec. #: [id number] Date Collected: 06/29/2009 Billing #: [id number] Date Received: 06/29/2009 Requisition # [id number] Physician(s): DAYANA ESPINOZA Source of Specimen: ENDOCERVICAL/ECTOCERVICAL THIN PREP Clinical Information: Date of Last Menstrual Period: 06/21/09 Menstrual History:Menorrhagia Specimen Adequacy: SATISFACTORY FOR EVALUATION. ADEQUATE ENDOCERVICAL/TRANSFORMATION ZONE. General Categorization: NEGATIVE FOR INTRAEPITHELIAL LESION OR MALIGNANCY. kf Electronic Signature FRANCES Jackson (ASCP) Reported: 07/03/2009 Cytology Outreach [facility] ICD-9 Code(s) V72.31 29 Cytology [id number] [facility], [address] [place] [address] CYTOLOGY REPORT Name: SHARON WORLEY Accession # : [id number] : 1960 (Age: 47) Sex: F Location: [facility] Soc. Sec. #: [id number] Date Collected: 06/23/2008 Billing #: [id number] Date Received: 06/24/2008 Physician(s): DAYANA ESPINOZA Source of Specimen: ENDOCERVICAL/ECTOCERVICAL THIN PREP Clinical Information: Date of Last Menstrual Period: 06/06/08 Menstrual History:Regular Specimen Adequacy: SATISFACTORY FOR EVALUATION. NO ENDOCERVICAL/TRANSFORMATION ZONE. General Categorization: NEGATIVE FOR INTRAEPITHELIAL LESION OR MALIGNANCY. Descriptive Evaluation: FUNGAL ORGANISMS MORPHOLOGICALLY CONSISTENT WITH LIDIA SP. tfn Electronic Signature FRANCES Stein (ASCP) Reported: 06/29/2008 Cytology Outreach [facility] ICD-9 Code (s) V72.31 A: 112.1 30 Specimen: [id number] - TESTS: CBC, PT, PTT IS PATIENT ON HEPARIN PROTOCOL ? N IS PATIENT ON ANTICOAGULANTS? NONE TEST: CBC TEST: PT QUERY: Anticoagulant Therapy? QUERY: Date of Last Dose: QUERY: Time of Last Dose: TEST: PTT QUERY: Anticoagulant Therapy? QUERY: Date of Last Dose: QUERY: Time of Last Dose: 31 0 - 0.6 NG/ML: NO EVIDENCE OF MYOCARDIAL INJURY 0.7 - 1.5 NG/ML: MILD ELEVATION, SUGGESTING POSSIBLE MYOCARDIAL INJURY > 1.5 NG/ML: CONSISTENT WITH MYOCARDIAL INJURY 32 LYING FLAT IN BED 33 0 - 0.6 NG/ML: NO EVIDENCE OF MYOCARDIAL INJURY 0.7 - 1.5 NG/ML: MILD ELEVATION, SUGGESTING POSSIBLE MYOCARDIAL INJURY > 1.5 NG/ML: CONSISTENT WITH MYOCARDIAL INJURY 34 THERAPEUTIC INR RANGE: 2.0 - 3.0 DVT, Pulmonary embolus, prophylaxis against venous thrombosis or systemic embolization in high risk patients. 2.5 - 3.5 Mechanical heart valves 35 Note: [facility] has established a 97.89% negative predictive value for thrombotic disease when a cutoff value of 0.5 ug/mL is used. Additional performance parameters for local prevalence of 94.4% as follows: PPV: 9.92%, Sensitivity: 76.47%, Specificity: 61.12% 36 Note: Persistent reduction for 3 months or more in an eGFR <60 mL/min/ 1.73 m2 defines CKD. Patients with eGFR values >/=60 mL/min/1.73 m2 may also have CKD if evidence of persistent proteinuria is present. The original MDRD equation for estimated GFR is not valid for patients less than 18 years of age. Additional information may be found at www.kdoqi.org. 37 0 - 0.6 NG/ML: NO EVIDENCE OF MYOCARDIAL INJURY 0.7 - 1.5 NG/ML: MILD ELEVATION, SUGGESTING POSSIBLE MYOCARDIAL INJURY > 1.5 NG/ML: CONSISTENT WITH MYOCARDIAL INJURY 38 NEGATIVE FOR LIDIA SPECIES 39 Cytology Laboratory [address] [place] [address], [address] [place] [address] CYTOLOGY REPORT Name: SHARON WORLEY : 1960 (Age: 45) Sex: F Location: [facility] Soc. Sec. #: [id number] Date Collected: 06/20/2006 Billing #: [id number] Date Received: 06/20/2006 Physician(s): DAYANA ESPINOZA Source of Specimen: ENDOCERVICAL/ECTOCERVICAL THIN PREP Clinical Information: Date of Last Menstrual Period: SPOTTING 04/20 Specimen Adequacy: SATISFACTORY FOR EVALUATION. NO ENDOCERVICAL/TRANSFORMATION ZONE. General Categorization: NEGATIVE FOR INTRAEPITHELIAL LESION OR MALIGNANCY. Descriptive Evaluation: REACTIVE CELLULAR CHANGES ASSOCIATED WITH INFLAMMATION. FUNGAL ORGANISMS MORPHOLOGICALLY CONSISTENT WITH LIDIA SP. saf Electronic Signature Stoney Arana MD Reported: 06/25/2006 Also seen by: FRANCES Tarango ([facility]) ICD-9 Code(s) V72.31 A: 616.9 112.1 40 NEGATIVE FOR GARDNERELLA VAGINALIS Testing Performed by: [place] [address] 41 NEGATIVE FOR TRICHOMONAS VAGINALIS 42 NORMALLY MENSTRUATING FEMALES: Follicular Phase:...............4-13 mIU/mL Mid-Cycle Peak:.................5-22 mIU/mL Luteal Phase:...................2 -13 mIU/mL Postmenopausal Female:........20-138 mIU/mL 43 NORMALLY MENSTRUATING FEMALES: Follicular Phase.............1-18 mIU/mL Mid -Cycle Peak.............24-105 mIU/mL Luteal Phase...............0.4-20 mIU/mL Postmenopausal .............15-62 mIU/mL Procedures Date CPT Code Description Status Comment 12/06/2016 Mammogram Completed Document: 12/06/16 - Digital Mammography Screening 06/19/2016 15558 Measure Blood Oxygen Level Completed Single Determination 03/13/2016 96803 Measure Blood Oxygen Level Completed Single Determination 12/03/2014 56351 Measure Blood Oxygen Level Completed Single Determination 12/25/2012 Colonoscopy Completed Document: 12/25/12 - Colonoscopy Encounters Type Date Location Provider CPT E/M Dx Office Visit 07/08/2017 4:15p [facility] [place] [address] E78.2 E55.9 Office Visit 12/17/2016 10:00a [facility] [place] [address] E78.2 Z68.26 E55.9 Office Visit 11/22/2016 3:30p [facility] [place] [address] Z01.419 G43.409 B00.1 Z12.31 Z12.11 E78.2 E55.9 Z11.59 Z68.26 E89.41 Z23 Office Visit 06/19/2016 8:30a [facility] [place] [address] J06.9 M77.12 Office Visit 03/13/2016 1:45p [facility] [place] [address] J01.90 M25.562 Office Visit 11/08/2015 8:30a [facility] [place] [address] G43.809 R51 Office Visit 09/04/2015 8:45a [facility] [place] [address] G43.809 M71.22 Office Visit 08/04/2015 8:30a [facility] [address] G43.809 G43.409 K21.9 Office Visit 07/04/2015 8:45a [facility] [address] G43.809 G43.409 J01.80 Office Visit 12/03/2014 8:45a [facility] [address] 465.9 Office Visit 09/19/2014 10:00a [facility] [place] [address] 724.2 Plan of Care 01/02/2018 - Monica Zayas, MDM54.5 Low back painNew Medication:Prednisone 20 mgNaproxen 500 mgNew Orders:Physical TherapyComments:acute back pain , symptoms suggest lumbar disc bulge, Recommend:Prednisone, take with foods, watch for stomach upset and insomniaOnce done with pred, start naproxen 500mg twice daily, take with food watch for stomach upset No alcohol May use plain tylenol, no more than 4000mg per day of tylenol--ok tocombine with above Recommend use of muscle relaxer,cyclobenzaprine, to use especially at bedtime, watch for sedation , avoid alcohol, careful driving is recommended. Narcotics are not recommended for back pain. Recommend referral for phys therapy, right away for manipulation and then you need corestrengthening Avoid heavy lifting best you can and discussed squatting instead of bending to lift and do things Pt needs to call prn loss of bowel/bladder control, worsening pain/ numbness/weakness, or any new concerns. Recommend shalom pressups, discussed, lay prone, pressup to elbows at 90 degrees and hold for 10-15 sec, then return to prone for 10-15 sec, do this for 10 reps every hour, until further guidance from physical therapy is available. If worsens sxs then stop. If feeling better, decrease to 4 times daily Please call ,see kcare for loss of bowel function, loss of bladder control, weakness or numbnessFollow up: next visit in 2 weeks fu low bck pain, ok for triage but not a double book referral to PT today or Friday KihssD86.31 Sciatica, RIGHT sideNew Orders: Physical NvntarlZ66.27 Body mass index (BMI) 27.0-27.9, adultComments:recommend reduced calorie diet and healthy diet and regular exercise to help with weight loss
[2018-01-11 12:12] VITALS: BP 125/74
--- NOTE | 2018-01-11 12:40 | UC ---
Skin Complaint HPI - HPI Summary HPI Summary: Started with red bump on left side of the abdomen that has started to expand into a larger nikolai. - History of Current Complaint Chief Complaint: UCSkin Time Seen by Provider: 01/11/18 12:32 Stated Complaint: SKIN CONDITION Hx Obtained From: Patient Hx Last Menstrual Period: 11/2011 ?: No Onset/Duration: Sudden Onset, Lasting Days - 3, Worse Since - onset Onset Severity: Mild Current Severity: Moderate Pain Intensity: 0 Location: Discrete - left upper abdomen Aggravating Factor(s): Nothing Alleviating Factor(s): Nothing Associated Signs & Symptoms: Positive: Negative - Allergy/Home Medications Allergies/Adverse Reactions: Allergies Allergy/AdvReac Type Severity Reaction Status Date / Time No Known Allergies Allergy Verified 01/11/18 12:08 Home Medications: Home Medications Ibuprofen TAB* [Advil TAB*] 400 mg PO Q6H PRN 01/11/18 [History Confirmed ] Review of Systems Skin: Rash Is Patient Immunocompromised?: No All Other Systems Reviewed And Are Negative: Yes PMH/Surg Hx/FS Hx/Imm Hx Previously Healthy: Yes - Surgical History Surgical History: Yes Surgery Procedure, Year, and Place: Complete Hysterectomy, [place] - Family History Known Family History: Positive: Cardiac Disease, Hypertension, Diabetes - Social History Occupation: Employed Full-time Lives: Alone Alcohol Use: Weekly Alcohol Amount: ~3 Substance Use Type: None Smoking Status (MU): Never Smoked Tobacco Have You Smoked in the Last Year: No - Immunization History Most Recent Influenza Vaccination: no Vaccination Up to Date: No Physical Exam Triage Information Reviewed: Yes Appearance: Well-Appearing, No Pain Distress, Well-Nourished Vital Signs: Initial Vital Signs Temp 98.3 F 01/11/18 12:05 Pulse 66 01/11/18 12:05 Resp 16 01/11/18 12:05 BP 125/74 01/11/18 12:05 Pulse Ox 98 01/11/18 12:05 Vital Signs Reviewed: Yes Eyes: Positive: Conjunctiva Clear Neck exam: Normal Respiratory Exam: Normal Cardiovascular Exam: Normal Musculoskeletal Exam: Normal Neurological Exam: Normal Psychological Exam: Normal Skin: Positive: rashes - Bullseye rash left upper abdomen 8x7 cm Course/Dx - Differential Diagnoses - Skin Complaint Differential Diagnoses: Contact Dermatitis, Eczema, Tick Born Illness - Diagnoses Provider Diagnoses: Acute lyme disease Discharge - Sign-Out/Discharge Documenting (check all that apply): Discharge/Admit/Transfer - Discharge Plan Condition: Stable Disposition: HOME Prescriptions: DOXYcycline CAP(*) [DOXYcycline 100MG CAP(*)] 100 mg PO BID #20 cap Patient Education Materials: Lyme Disease (ED), Tick Bite (ED), Doxycycline ( By mouth) Referrals: Monica Zayas MD [Primary Care Provider] - - Billing Disposition and Condition Condition: STABLE Disposition: HOME
== END 2018-01-11 12:56 | disposition home or self-care (01) ==
LOC: UCCORT 10:36
DX: A69.20 Lyme disease, unspecified (principal)
CPT/HCPCS: 99212; G0463

== ENCOUNTER 2018-02-24 09:30 | Emergency (ER) | payer BC ==
[2018-02-24 10:19] VITALS: BP 142/73
--- NOTE | 2018-02-24 10:20 | UC ---
Throat Pain/Nasal Satish HPI - HPI Summary HPI Summary: 3 days of nasal and sinus congestion and cough--no fevers - History of Current Complaint Chief Complaint: UCRespiratory Stated Complaint: SINUS,CHEST CONGESTION Time Seen by Provider: 02/24/18 10:19 Hx Obtained From: Patient Hx Last Menstrual Period: 11/2011 ?: No Onset/Duration: Sudden Onset, Lasting Days - 3 Pain Intensity: 3 Pain Scale Used: 0-10 Numeric Cough: Nonproductive Associated Signs & Symptoms: Positive: Sinus Discomfort, Nasal Discharge - Allergies/Home Medications Allergies/Adverse Reactions: Allergies Allergy/AdvReac Type Severity Reaction Status Date / Time No Known Allergies Allergy Verified 02/24/18 10:20 Home Medications: Home Medications Guaifenesin/Pseudo 600/60(NF) [Mucinex D 600/60 (NF)] 1 tab PO DAILY PRN [History Confirmed 02/24/18] PMH/Surg Hx/FS Hx/Imm Hx Previously Healthy: Yes - Surgical History Surgical History: Yes Surgery Procedure, Year, and Place: Complete Hysterectomy, [place] - Family History Known Family History: Positive: Cardiac Disease, Hypertension, Diabetes - Social History Occupation: Employed Full-time Lives: With Family Alcohol Use: Occasionally Alcohol Amount: ~3 Substance Use Type: None Smoking Status (MU): Never Smoked Tobacco Have You Smoked in the Last Year: No - Immunization History Most Recent Influenza Vaccination: no Vaccination Up to Date: No Review of Systems Constitutional: Negative Skin: Negative Eyes: Negative ENT: Nasal Discharge, Sinus Congestion Respiratory: Cough Cardiovascular: Negative Gastrointestinal: Negative Genitourinary: Negative Motor: Negative Neurovascular: Negative Musculoskeletal: Negative Neurological: Negative Psychological: Negative Is Patient Immunocompromised?: No All Other Systems Reviewed And Are Negative: Yes Physical Exam Triage Information Reviewed: Yes Appearance: Well-Appearing, No Pain Distress, Well-Nourished Vital Signs: Initial Vital Signs Temp 99.6 F 02/24/18 10:13 Pulse 80 02/24/18 10:13 Resp 18 02/24/18 10:13 BP 142/73 02/24/18 10:13 Pulse Ox 97 02/24/18 10:13 Vital Signs Reviewed: Yes Eye Exam: Normal Eyes: Positive: Conjunctiva Clear ENT Exam: Normal ENT: Positive: Normal ENT inspection, Hearing grossly normal, Pharynx normal, Nasal congestion, Nasal drainage, TMs normal, Uvula midline. Negative: Tonsillar swelling, Tonsillar exudate, Trismus, Muffled voice, Hoarse voice, Dental tenderness, Sinus tenderness Dental Exam: Normal Neck exam: Normal Neck: Positive: Supple, Nontender, No Lymphadenopathy Respiratory Exam: Normal Respiratory: Positive: Chest non-tender, Lungs clear, Normal breath sounds, No respiratory distress, No accessory muscle use Cardiovascular Exam: Normal Cardiovascular: Positive: RRR, No Murmur, Pulses Normal, Brisk Capillary Refill Musculoskeletal Exam: Normal Musculoskeletal: Positive: Strength Intact, ROM Intact, No Edema Neurological Exam: Normal Neurological: Positive: Alert, Muscle Tone Normal Psychological Exam: Normal Skin Exam: Normal Throat Pain/Nasal Course/Dx - Course Assessment/Plan: zyrtec, mucinex D, flonase increase fluids, tylenol, ibupofen follow with pcp prn - Differential Dx/Diagnosis Provider Diagnoses: Allergic Rhinnitis Discharge - Sign-Out/Discharge Documenting (check all that apply): Discharge/Admit/Transfer - Discharge Plan Condition: Stable Disposition: HOME Prescriptions: Cetirizine* [ZyrTEC 10 MG TAB*] 10 mg PO DAILY #30 tab Fluticasone NASAL SPRAY 50MCG* [Flonase NASAL SPRAY 50MCG*] 2 spray BOTH NARES DAILY #1 btl Patient Education Materials: Allergic Rhinitis (ED), How to Use Nasal Severance (ED ), Postnasal Drip (DC) Forms: *Work Release Referrals: Monica Zayas MD [Primary Care Provider] - If Needed - Billing Disposition and Condition Condition: STABLE Disposition: Home
== END 2018-02-24 10:40 | disposition home or self-care (01) ==
LOC: UCCORT 09:30
DX: J30.9 Allergic rhinitis, unspecified (principal); R09.89 Other specified symptoms and signs involving the circulatory and respiratory systems
CPT/HCPCS: 99212; G0463

== ENCOUNTER 2019-11-23 20:19 | Emergency (ER) | payer BC ==
--- OUTSIDE RECORDS SUMMARY | 2019-11-23 20:43 | XMS REPORT | Continuity of Care Document ---
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 [phone] Medicine Problems Description No Information Available Social History Type Date Description Comments Sex Unknown ETOH Use Currently consumes alcohol Tobacco Use Start: Unknown Patient has never smoked Smoking Status Reviewed: 10/05/18 Patient has never smoked Allergies, Adverse Reactions, Alerts Description No Known Drug Allergies Medications Active Medications SIG Qnty Indications Ordering Provider Date Atorvastatin Calcium 1 by mouth every 90tabs Georgiana 07/27/2019 day starting Vincent, [address] 40mg Tablets 08/09/19 Rizatriptan Benzoate take one tablet 14tabs Georgiana 04/15/2019 by mouth as Vincent, [address] 5mg Tablets directed with onset, may repeat in 4 hours if effective first dose Mirtazapine 1 tablet by mouth 90tabs G47.00 Georgiana 02/04/2019 7.5mg every night as Vincent, [address] Tablets needed Lorazepam 1 by mouth twice 30tabs F41.0 Georgiana 02/04/2019 0.5mg Tablets a day as needed Vincent, [address] anxiety Baby Aspirin one a day Unknown Imitrex as needed for Unknown migraines Immunizations CPT Code Status Date Vaccine Lot # [id number] Given 10/05/2018 Influenza Vac, Quadrivalent, Slit Virus, Im [id number] Vital Signs Date Vital Result Comment 11/03/2019 9:02am BP Systolic 118 mmHg BP Diastolic 82 mmHg Heart Rate 80 /min Body Temperature 97.4 F Respiratory Rate 24 /min Weight 181.50 lb shoes/coat on 09/13/2019 1:00pm BP Systolic 120 mmHg BP Diastolic 80 mmHg Heart Rate 74 /min Body Temperature 98.6 F Respiratory Rate 16 /min Weight 183.00 lb Results Description No Information Available Procedures Date Code Description Status 02/22/2019 80110533 Mammogram Completed 02/04/2019 [id number] Mammogram Completed 09/15/2011 43703255 Colonoscopy Completed Medical Devices Description No Information Available Encounters Type Date Location Provider Dx Diagnosis Office Visit 09/13/2019 [facility] Office Ruben Jernigan Z86.73 Prsnl hx of TIA 1:00p MD Santana (TIA), and cereb infrc w/o resid deficits Office Visit 07/26/2019 [facility] Office Ruben Jernigan Z86.73 Prsnl hx of TIA 1:40p MD Santana (TIA), and cereb infrc w/o resid deficits Assessments Date Code Description Provider 11/03/2019 Z86.73 Personal history of transient ischemic Georgiana Vincent, [address] attack (TIA), and cerebral infarction without residual deficits 11/03/2019 E78.5 Hyperlipidemia, unspecified Georgiana Vincent, [address] 11/03/2019 G47.00 Insomnia, unspecified Georgiana Vincent, [address] 11/03/2019 F41.9 Anxiety disorder, unspecified Georgiana Vincent, [address] 09/13/2019 Z86.73 Personal history of transient ischemic Ruben Dillon MD attack (TIA), and cerebral infarction without residual deficits 07/26/2019 Z86.73 Personal history of transient ischemic Ruben Dillon MD attack (TIA), and cerebral infarction without residual deficits Plan of Treatment 11/03/2019 - Georgiana Vincent, FNPZ86.73 Personal history of transient ischemic attack (TIA), and cerebral infarction without oqwhvbyxfkygeqgbQ69.5 Hyperlipidemia, unspecifiedFollow up:Followup: In 3 months to 4 hmtekpM99.00 Insomnia, thovmeggjfdG31.9 Anxiety disorder, unspecifiedAllComments:Medication Management Patient Understands medications he 's taking? Yes No Are there Barriers to Adherence? Yes No Has the patient been asked about herbal supplements and therapies, andOTC meds? Yes No As always, we strongly encourage a healthy diet and making physical activity a part of your every day life. If you have questions about how or where to start, please contact the office. Functional Status Description No Information Available Mental Status Description No Information Available Referrals Refer to Reason for Referral Status Appt Date Ruben Jenkins MD ind: positive rheumatoid arthritis titer, jw Scheduled 07/27/2019 [address], [place] [address] [phone]
--- OUTSIDE RECORDS SUMMARY | 2019-11-23 20:43 | XMS REPORT | Continuity of Care Document ---
:1960 External Reference #:[id number] Author Name Kayla Worthy PA-C Address [address] [place] [address], [address] [place] [address] Care Team Providers Name Role Phone Ruben Dillon M.D. 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 Medicine Problems Active Problems Provider Date Migraine Kayla Worthy PA-C Onset: 09/29/2019 Hyperlipidemia Kayla Worthy PA-C Onset: 09/29/2019 Social History Type Date Description Comments Sex Unknown ETOH Use Denies alcohol use Tobacco Use Start: Unknown Patient has never smoked (pipe, cigarette, cigar) Recreational Drug Use Denies Drug Use Smoking Status Reviewed: 09/29/19 Patient has never smoked (pipe, cigarette, cigar) Allergies, Adverse Reactions, Alerts Description No Known Drug Allergies Medications Active Medications SIG Qnty Indications Ordering Provider Date Aspir-Low 1 by mouth every Unknown 81mg Tablets DR day Atorvastatin Calcium 1 by mouth every Unknown 40mg day Tablets Immunizations Description No Information Available Vital Signs Date Vital Result Comment 09/29/2019 8:11am Height 68 inches 5'8" Weight 180.00 lb BMI (Body Mass Index) 27.4 kg/m2 BP Systolic 135 mmHg BP Diastolic 87 mmHg Heart Rate 69 /min Body Temperature 98.1 F Body Temperature 36.7 C Respiratory Rate 16 /min Results Description No Information Available Procedures Date Code Description Status 07/07/2019 01726 Echocardiography, Tranthoracic Real-Time Image Completed Documentation 07/07/2019 03896 Electrocardiogram Interpretation & Report Only Completed Medical Devices Description No Information Available Encounters Type Date Location Provider Dx Diagnosis Office Visit 09/29/2019 [facility] Kayla Worthy, Z86.73 Prsnl hx of TIA 8:00a PA-C (TIA), and cereb infrc w/o resid deficits Office Visit 07/09/2019 [facility] Neurology Edgardo R29.810 Facial weakness 3:48a MD Doug R53.1 Weakness Office Visit 07/08/2019 4:10a [facility] Neurology Edgardo R29.810 Facial weakness MD Doug R53.1 Weakness Office Visit 07/07/2019 3:10a [facility] Neurology Edgardo I63.9 Cerebral MD Doug infarction, unspecified R29.703 Nihss score 3 Assessments Date Code Description Provider 09/29/2019 Z86.73 Personal history of transient ischemic Kayla Zaynab, PA-C attack (TIA), and cerebral infarction without residual deficits 07/09/2019 R29.810 Facial weakness Elana SCHWARZ MD 07/09/2019 R29.810 Facial weakness Edgardo Camacho MD 07/09/2019 R53.1 Weakness Elana SCHWARZ MD 07/09/2019 R53.1 Weakness Edgardo Camacho MD 07/08/2019 R29.810 Facial weakness Elana SCHWARZ MD 07/08/2019 R29.810 Facial weakness Edgardo Camahco MD 07/08/2019 R53.1 Weakness Elana SCHWARZ MD 07/08/2019 R53.1 Weakness Edgardo Camacho MD 07/07/2019 I63.9 Cerebral infarction, unspecified Elana SCHWARZ MD 07/07/2019 I63.9 Cerebral infarction, unspecified Edgardo Camacho MD 07/07/2019 R29.703 Nihss score 3 Elana SCHWARZ MD 07/07/2019 R29.703 Nihss score 3 Edgardo Camacho MD 07/07/2019 I63.9 Cerebral infarction, unspecified Meeta Scott MD 07/07/2019 I63.9 Cerebral infarction, unspecified Blake Birch MD 07/07/2019 I63.89 Other cerebral infarction Blake Birch MD 07/07/2019 G81.91 Hemiplegia, unspecified affecting right Blake Birch MD dominant side 07/07/2019 R29.810 Facial weakness Blake Birch MD 07/07/2019 R29.703 Nihss score 3 Blake Birch MD 07/07/2019 E78.5 Hyperlipidemia, unspecified Blake Birch MD 07/07/2019 G43.909 Migraine, unsp, not intractable, without Blake Birch MD status migrainosus 07/07/2019 R40.2362 Coma scale, best motor response, obeys Blake Birch MD commands, EMR Plan of Treatment Future Appointment(s):12/21/2019 10:00 am - SOURAV RuedaC at [facility] Fipsxejeq64/15/2020 - OLGA Rueda-CZ86.73 Personal history of transient ischemic attack (TIA), and cerebral infarction without residualdeficitsNew Orders:Evm Interpretation, Ordered: 09/29/19Comments:Plan of care1. continue aspirin and statin2. repeat hypercoaguable workup; not complete from hospital labs3. EVM4. regular f/u with pcp5. f/u in three months Functional Status Description No Information Available Mental Status Description No Information Available Referrals Description No Information Available
[2019-11-23 21:00] VITALS: BP 117/81
[2019-11-23] MEDS ORDERED: Amoxicillin PO (*) 250 MG CAP PO ONE (22:09)
[2019-11-23] MEDS ORDERED: Amoxicillin PO (*) 500 MG CAP PO ONE (22:09)
--- NOTE | 2019-11-23 22:17 | UC ---
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 has had URI symptoms x > 2 weeks now with 5-7 days of severe sinus pressure and pain upper dental pain low energy no cp or sob - History of Current Complaint Chief Complaint: UCRespiratory Stated Complaint: SINUS COMPLAINT Time Seen by Provider: 11/23/19 21:51 Hx Last Menstrual Period: 11/2011 Onset/Duration: Gradual Onset, Lasting Weeks Severity: Moderate Pain Intensity: 5 Pain Scale Used: 0-10 Numeric Associated Signs & Symptoms: Positive: Sinus Discomfort, Nasal Discharge - Epiglottits Risk Factors Epiglottis Risk Factors: Negative - Allergies/Home Medications Allergies/Adverse Reactions: Allergies Allergy/AdvReac Type Severity Reaction Status Date / Time No Known Allergies Allergy Verified 11/23/19 20:59 Home Medications: Home Medications Amoxicillin PO (*) [Amoxicillin 875 MG (*)] 875 mg PO BID #14 tab 11/23/19 [Rx] Aspirin EC TAB* [Ecotrin EC Low Dose 81 MG*] 1 tab DAILY 11/23/19 [History Confirmed 11/23/19] Atorvastatin* [Lipitor 10 MG*] 1 tab DAILY 11/23/19 [History Confirmed 11/23/19] Fluticasone NASAL SPRAY 50MCG* [Flonase NASAL SPRAY 50MCG*] 2 spray BOTH NARES BID #1 btl 11/23/19 [Rx] PMH/Surg Hx/FS Hx/Imm Hx Previously Healthy: Yes Endocrine History: Dyslipidemia Neurological History: CVA - Surgical History Surgical History: Yes Surgery Procedure, Year, and Place: Complete Hysterectomy, [place] - Family History Known Family History: Positive: Cardiac Disease, Hypertension, Diabetes - Social History Alcohol Use: Occasionally Alcohol Amount: ~3 Substance Use Type: None Smoking Status (MU): Never Smoked Tobacco Have You Smoked in the Last Year: No - Immunization History Most Recent Influenza Vaccination: no Vaccination Up to Date: No Review of Systems All Other Systems Reviewed And Are Negative: Yes Constitutional: Positive: Fatigue Skin: Positive: Negative Eyes: Positive: Negative ENT: Positive: Nasal Discharge, Sinus Congestion, Sinus Pain/Tenderness Respiratory: Positive: Cough Cardiovascular: Positive: Negative Gastrointestinal: Positive: Negative Genitourinary: Positive: Negative Motor: Positive: Negative Neurovascular: Positive: Negative Musculoskeletal: Positive: Negative Neurological/Mental Status: Positive: Negative Physical Exam Triage Information Reviewed: Yes Appearance: Well-Appearing, No Pain Distress, Well-Nourished Vital Signs: Initial Vital Signs Temp 97.3 F 11/23/19 20:57 Pulse 71 11/23/19 20:57 Resp 16 11/23/19 20:57 BP 117/81 11/23/19 20:57 Pulse Ox 98 11/23/19 20:57 Vital Signs Reviewed: Yes Eyes: Positive: Conjunctiva Clear ENT: Positive: Hearing grossly normal, Nasal congestion, Nasal drainage, Sinus tenderness, Uvula midline. Negative: Tonsillar swelling, Tonsillar exudate, Trismus, Muffled voice, Hoarse voice, Dental tenderness Dental Exam: Normal Neck: Positive: Supple, Nontender, No Lymphadenopathy Respiratory: Positive: Lungs clear, Normal breath sounds, No respiratory distress Cardiovascular: Positive: RRR, No Murmur Abdomen Description: Positive: Nontender, No Organomegaly Bowel Sounds: Positive: Present Musculoskeletal: Positive: No Edema Neurological: Positive: Alert Psychological Exam: Normal Skin Exam: Normal Throat Pain/Nasal Course/Dx - Differential Dx/Diagnosis Provider Diagnosis: Acute sinusitis with symptoms > 10 days Discharge ED - Sign-Out/Discharge Documenting (check all that apply): Patient Departure All imaging exams completed and their final reports reviewed: No Studies - Discharge Plan Condition: Stable Disposition: HOME Prescriptions: Amoxicillin PO (*) [Amoxicillin 875 MG (*)] 875 mg PO BID #14 tab Fluticasone NASAL SPRAY 50MCG* [Flonase NASAL SPRAY 50MCG*] 2 spray BOTH NARES BID #1 btl Patient Education Materials: Sinusitis (ED) Referrals: Georgiana Kaur NP [Primary Care Provider] - 6 Days (if not better) Additional Instructions: warm facial compresses saline nasal spray : 2 sprays each nostril twice daily follow by the flonase - Billing Disposition and Condition Condition: STABLE Disposition: Home
== END 2019-11-23 22:17 | disposition home or self-care (01) ==
LOC: UCCORT 20:19
DX: J01.90 Acute sinusitis, unspecified (principal); R05 Cough; E78.5 Hyperlipidemia, unspecified; Z86.73 Personal history of transient ischemic attack (TIA), and cerebral infarction without residual deficits; Z79.82 Long term (current) use of aspirin; Z79.899 Other long term (current) drug therapy
CPT/HCPCS: 99212; A9270-GY; G0463